=== PATIENT | male | born 1950 | race Two or more races ===

== ENCOUNTER 2022-10-13 01:04 | Emergency (ER) | payer BC, OTHER ==
[~2022-10-13] VITALS: Ht 182.9 cm; Wt 89.8 kg
[2022-10-13 01:07] VITALS: BP 125/71
[2022-10-13] MEDS ORDERED: LIDOCAINE 2% JEL UROJET 10 ML MM ONE (01:23)
--- NOTE | 2022-10-13 01:33 | NUR ---
URINE COLLECTED AND SENT TO LAB
[2022-10-13 02:20] LABS: BILIRUBIN,URINE NEGATIVE (NEGATIVE); COLOR,URINE YELLOW (YELLOW); LEUKOCYTE ESTERASE ,URINE NEGATIVE (NEGATIVE); NITRITE, URINE NEGATIVE (NEGATIVE); PH,URINE 6.5 (5.0-8.0); PROTEIN,URINE NEGATIVE (NEGATIVE); UGLUCOSE NEGATIVE (NEGATIVE); UROBILINOGEN,URINE 0.2 EU/dL (0.2)
[2022-10-13 02:33] LABS: BACTERIA,URINE Rare /HPF (None Seen); SQUAMOUS EPITHELIAL CELL,UR Few /HPF (None Seen); WBC,URINE 0-2 /HPF (0-3)
--- NOTE | 2022-10-13 02:52 | NUR ---
REPORT GIVEN TO PARKER AT [facility]. [facility] ETA: 30MIN
--- NOTE | 2022-10-13 03:07 | NUR ---
PT WAS PICKED UP BY [facility] AND TRANSFERRED BACK TO THE FACILITY IN STABLE CONDITION
== END 2022-10-13 03:08 ==
LOC: ER 01:06
DX: R31.9 Hematuria, unspecified (principal); I11.0 Hypertensive heart disease with heart failure; I50.9 Heart failure, unspecified; I48.91 Unspecified atrial fibrillation; Z88.0 Allergy status to penicillin
CPT/HCPCS: 99284; 51700; 81001; J3490

== ENCOUNTER → 2022-10-19 | Emergency (ER) | payer BC ==
[~2022-10-19] VITALS: Ht 182.9 cm; Wt 93.9 kg
--- NOTE | 2022-10-19 09:45 | NUR ---
Pt [employer] hematuria. Blood noted around tip of Penis
--- NOTE | 2022-10-19 10:01 | NUR ---
[address] hector 16g inserted. Manual irrigation till clear
--- NOTE | 2022-10-19 10:01 | NUR ---
Urine collected and sent
[2022-10-19 10:23] LABS: BILIRUBIN,URINE NEGATIVE (NEGATIVE); COLOR,URINE DARK YELLOW (YELLOW); LEUKOCYTE ESTERASE ,URINE NEGATIVE (NEGATIVE); NITRITE, URINE NEGATIVE (NEGATIVE); PROTEIN,URINE TRACE mg/dl (NEGATIVE); UGLUCOSE NEGATIVE (NEGATIVE); UROBILINOGEN,URINE 0.2 EU/dL (0.2)
[2022-10-19 10:36] LABS: BACTERIA,URINE Rare /HPF (None Seen); SQUAMOUS EPITHELIAL CELL,UR Few /HPF (None Seen); WBC,URINE 0-2 /HPF (0-3)
--- NOTE | 2022-10-19 10:57 | NUR ---
CALLED [facility] FOR TRANSPORT ETA 45 MINS [facility].
--- NOTE | 2022-10-19 11:29 | NUR ---
Report given to Alisson CARTWRIGHT @ [facility]
--- NOTE | 2022-10-19 12:11 | NUR ---
Patient discharged to SNF in stable condition. Written and verbal after care instructions given. Patient verbalizes understanding of instruction.
--- NOTE | 2022-10-19 12:11 | NUR ---
pt picked up and left with ambulance
[2022-10-19 12:12] VITALS: BP 142/72
== END ==
LOC: ER 08:55
DX: R31.9 Hematuria, unspecified (principal); I11.0 Hypertensive heart disease with heart failure; I50.9 Heart failure, unspecified; I48.91 Unspecified atrial fibrillation; Z88.0 Allergy status to penicillin
CPT/HCPCS: 81001